=== PATIENT | female | born 1965 | race Caucasian/White ===

== ENCOUNTER 2024-06-23 13:23 | Emergency (ER) | payer OTHER ==
[2024-06-23] VITALS (10 sets, daily range): BP systolic 92–134; BP diastolic 56–95
[~2024-06-23] VITALS: Ht 160 cm; Wt 58.0 kg
[2024-06-23] MEDS ORDERED: ORPHENADRINE CITRATE 30 MG/ML AMP IV ONE (13:50)
[2024-06-23] MEDS ORDERED: SODIUM CHLORIDE 0.9% 1,000 ML IV ONE (13:50)
[2024-06-23] MEDS ORDERED: KETOROLAC TROMETHAMINE 15 MG/ML SDV IV ONE (13:50)
[2024-06-23 15:18] LABS: BASO% 0.2 % (0-3); EOS% 0.8 % (0-8); HEMATOCRIT 43.6 % (37.0-47.0); IMMATURE GRANULOCYTES 0.5 % (0.0-5.0); LYMPH% 16.2 % (15-41); MEAN CELL VOLUME 102.1 fL CALC (80.0-100.0); MEAN CORPUSCULAR HGB 32.8 pG CALC (26.0-32.0); MEAN CORPUSCULAR HGB CONC 32.1 g/dL CAL (32.0-36.0); NEUT# 4.38 thou/uL (2.00-7.15); NEUT% 73.3 % (42-76); RED BLOOD COUNT 4.27 mill/uL (4.20-5.60); RED CELL DISTRI WIDTH 13.5 % (11.5-15.5)
[2024-06-23 15:29] LABS: MAGNESIUM 2.4 mg/dL (1.6-2.3); POTASSIUM 2.7 mmol/l (3.5-5.1); TOTAL PROTEIN 6.7 g/dL (6.3-8.2)
[2024-06-23] MEDS ORDERED: POTASSIUM CHLORIDE 20MEQ 100 ML IV ONE (16:00)
[2024-06-23] MEDS ORDERED: POTASSIUM CHLORIDE 20 MEQ/TAB PO ONE (16:00)
[2024-06-23] MEDS ORDERED: POVIDONE IODINE 0.5 OZ/BTL TOP ONE (16:05)
[2024-06-23] MEDS ORDERED: MORPHINE SULFATE 4 MG/ML VIAL IV ONE (16:35)
[2024-06-23] MEDS ORDERED: ONDANSETRON HCl 4 MG/2 ML SDV IV ONE (16:35)
[2024-06-23] MEDS ORDERED: METHYLPHENIDATE54 M2 PO (17:09)
[2024-06-23] MEDS ORDERED: CRESTOR20 MG PO (17:09)
[2024-06-23] MEDS ORDERED: ASPIRIN325 MG PO (17:10)
[2024-06-23] MEDS ORDERED: RESTORIL15 MG PO (17:11)
[2024-06-23] MEDS ORDERED: GABAPENTIN300 M2 PO (17:11)
[2024-06-23] MEDS ORDERED: oxyCODONE 5MG/ ACETAMINOPHEN 325MG TAB PO ONE (17:20)
[2024-06-23] MEDS ORDERED: MORPHINE SULFATE 4 MG/ML VIAL IV PRN (18:35)
[2024-06-23] MEDS ORDERED: ONDANSETRON HCl 4 MG/2 ML SDV IV PRN (18:35)
[2024-06-24] VITALS (8 sets, daily range): BP systolic 95–117; BP diastolic 60–81
[2024-06-24 05:56] LABS: BILIRUBIN, TOTAL 0.6 mg/dL (0.02-1.3); CREATININE 2.2 mg/dL (0.5-1.0); POTASSIUM 2.7 mmol/l (3.5-5.1); TOTAL PROTEIN 5.4 g/dL (6.3-8.2)
[2024-06-24 06:00] LABS: EOS% 2.8 % (0-8); HEMATOCRIT 38.4 % (37.0-47.0); HEMOGLOBIN 12.6 g/dl (12.0-16.0); IMMATURE GRANULOCYTES 0.3 % (0.0-5.0); LYMPH% 30.1 % (15-41); MEAN CELL VOLUME 104.6 fL CALC (80.0-100.0); MEAN CORPUSCULAR HGB 34.3 pG CALC (26.0-32.0); MEAN CORPUSCULAR HGB CONC 32.8 g/dL CAL (32.0-36.0); MONO% 1.4 % (2-13); NEUT# 2.33 thou/uL (2.00-7.15); NEUT% 65.4 % (42-76); RED BLOOD COUNT 3.67 mill/uL (4.20-5.60); RED CELL DISTRI WIDTH 13.4 % (11.5-15.5)
[2024-06-24] MEDS ORDERED: POTASSIUM CHLORIDE 20 MEQ/PKT POWDER PO ONE (10:00)
[2024-06-24] MEDS ORDERED: POTASSIUM CHLORIDE 20 MEQ/TAB PO ONE (10:00)
== END 2024-06-24 14:30 | disposition left against medical advice (07) | DRG 999 ==
LOC: ED 13:23
PROVIDERS: Family Medicine; Nurse Practitioner
PROC: 0W9930Z Drainage of Right Pleural Cavity with Drainage Device, Percutaneous Approach (ICD-10-PCS; principal; 2024-06-23)
PROC: 0W9930Z Drainage of Right Pleural Cavity with Drainage Device, Percutaneous Approach (ICD-10-PCS; 2024-06-23)
DX: R55 Syncope and collapse (principal); S22.31XA Fracture of one rib, right side, initial encounter for closed fracture; S27.0XXA Traumatic pneumothorax, initial encounter; S20.411A Abrasion of right back wall of thorax, initial encounter; E87.6 Hypokalemia; I25.10 Atherosclerotic heart disease of native coronary artery without angina pectoris; W19.XXXA Unspecified fall, initial encounter; Z95.1 Presence of aortocoronary bypass graft; Z53.29 Procedure and treatment not carried out because of patient's decision for other reasons; Z98.84 Bariatric surgery status